=== PATIENT | female | born 1970 | race Caucasian/White ===

== ENCOUNTER 2024-07-04 10:25 | Emergency (ER) | payer MEDICAID, OTHER ==
[~2024-07-04] VITALS: Ht 157.5 cm; Wt 68.2 kg
[2024-07-04 10:41] VITALS: TEMP 98.7
[2024-07-04] MEDS: AMOX TR/POT CLAV 875 MG/125 MG TABLET PO ONE (13:06)
[2024-07-04] MEDS: PERTUSS(ACELL),DIPH,TET/PF 0.5 ML SYRINGE [ADULT] IM. ONE (13:29)
[2024-07-04] MEDS: RABIES VACCINE, HUMAN DIPLOID/PF 2.5 UNITS/ML VIAL IM. ONE (13:49)
[2024-07-04] MEDS: RABIES IMMUNE GLOBULIN/PF 150 UNIT/ML 10 ML VIAL IM. ONE (13:54)
[2024-07-04] MEDS ORDERED: AMOX-457 PO (14:00)
[2024-07-04 14:40] VITALS: BP 124/80; PULSE 72; RESP 18
== END 2024-07-04 15:45 | disposition home or self-care (01) ==
LOC: EMS 10:25
DX: S61.253A Open bite of left middle finger without damage to nail, initial encounter (principal); W55.01XA Bitten by cat, initial encounter; Y93.89 Activity, other specified; Y92.89 Other specified places as the place of occurrence of the external cause; Y99.8 Other external cause status
CPT/HCPCS: 90375; 90471; 90472; 90675; 90715; 96372; 99284

== ENCOUNTER 2024-07-07 09:43 | Emergency (ER) | payer MEDICAID ==
[~2024-07-07] VITALS: Ht 157.5 cm; Wt 67.3 kg
[~2024-07-07 09:43] MED LIST: AMOX-457 PO
[2024-07-07 09:46] VITALS: BP 112/74; PULSE 63; RESP 18; TEMP 97.8
[2024-07-07] MEDS: RABIES VACCINE, HUMAN DIPLOID/PF 2.5 UNITS/ML VIAL IM. ONE (10:54)
== END 2024-07-07 11:16 | disposition home or self-care (01) ==
LOC: EMS 09:43
DX: S61.253D Open bite of left middle finger without damage to nail, subsequent encounter (principal); E03.9 Hypothyroidism, unspecified; Z23 Encounter for immunization; Z90.49 Acquired absence of other specified parts of digestive tract; Z90.89 Acquired absence of other organs; Z98.890 Other specified postprocedural states; W55.01XD Bitten by cat, subsequent encounter
CPT/HCPCS: 90471; 90675; 99281

== ENCOUNTER 2024-07-18 10:05 | Emergency (ER) | payer MEDICAID ==
[~2024-07-18] VITALS: Ht 162.6 cm; Wt 65.9 kg
[2024-07-18 10:08] VITALS: BP 107/63; PULSE 78; RESP 18; TEMP 98.5
[2024-07-18] MEDS: RABIES VACCINE (PCEC)/PF 2.5 UNITS/ML SYRINGE IM. ONE (11:07)
== END 2024-07-18 11:14 | disposition home or self-care (01) ==
LOC: EMS 10:05
DX: Z23 Encounter for immunization (principal); E03.9 Hypothyroidism, unspecified; Z90.49 Acquired absence of other specified parts of digestive tract; Z90.89 Acquired absence of other organs; Z98.890 Other specified postprocedural states
CPT/HCPCS: 90471; 90675; 99283